=== PATIENT | female | born 1950 | race Caucasian/White ===

== ENCOUNTER 2017-04-08 19:39 | Inpatient (IN) ==
[2017-04-08 20:20] LABS: MANUAL DIFF NEEDED? NO; URINE MICRO REVIEW NEEDED? NO; URINE SOURCE CLEAN CATCH
[2017-04-08 20:26] LABS: BASO% 0.4 % (0.0-0.8); EOS# 0.05 X1000 (0.0-0.7); EOS% 0.4 % (0.0-10.0); HEMATOCRIT 48.9 % (37.0-47.0); HEMOGLOBIN 17.2 g/dL (12.0-16.0); IMM GRAN# 0.03 X1000 (0.0-0.04); IMM GRAN% 0.2 % (0.0-0.5); LYMPH# 1.85 X1000 (1.2-3.4); LYMPH% 13.6 % (20.5-51.1); MCH 32.3 PG (27-31); MCHC 35.2 g/dL (33-37); MCV 91.7 FL (81-99); MONO# 1.03 X1000 (0.11-0.59); MONO% 7.6 % (1.7-9.3); MPV 10.3 FL (7.4-10.4); NEUT% 77.8 % (42.2-75.2); PLT 256 X1000 (130-400); RBC 5.33 XMIL (4.2-5.4)
[2017-04-08 20:48] LABS: BILIRUBIN URINE NEGATIVE (NEGATIVE); BLOOD URINE TRACE (NEGATIVE); COLOR STRAW; GLUCOSE URINE NEGATIVE (NEGATIVE); LEUKOCYTES URINE LARGE (NEGATIVE); NITRITE URINE NEGATIVE (NEGATIVE); PROTEIN URINE NEGATIVE (NEGATIVE); TURBIDITY URINE HAZY (CLEAR); UROBILINOGEN URINE NORMAL (NORMAL)
[2017-04-08 21:09] LABS: AGAP 21; ALKALINE PHOSPHATASE 86 U/L (32-104); AMYLASE 35 U/L (20-200); BUN 3 mg/dL (8-22); CALCIUM 9.4 mg/dL (8.8-10.2); CHLORIDE 94 mmol/L (98-107); COSMO 271; GOT 43 U/L (10-30); GPT 24 U/L (10-36); LIPASE 18 U/L (13-60); POTASSIUM 4.1 mmol/L (3.5-5.1); SODIUM 137 mmol/L (136-145); TCO2 22 mmol/L (25-35); TOTAL BILIRUBIN 0.49 mg/dL (0.20-1.00); TOTAL PROTEIN 7.9 g/dL (6.3-8.3)
[2017-04-08 21:21] LABS: URINE WBC 20-40 /HPF (<10)
[2017-04-08 21:22] LABS: UR EPITHELIAL CELLS <10 /HPF (<10); URINE BACTERIA 4+ /HPF; URINE CULTURE NEEDED? YES
[2017-04-08 21:24] LABS: UR AMPHETAMINES QUAL NONE DETECTED (NONE DETECT); UR BARBITUATES QUAL NONE DETECTED (NONE DETECT); UR BENZODIAZEPIN QUAL NONE DETECTED (NONE DETECT); UR CANNABINOIDS QUAL NONE DETECTED (NONE DETECT); UR COCAINE QUAL NONE DETECTED (NONE DETECT); UR METHADONE QUAL NONE DETECTED (NONE DETECT); UR OPIATES QUAL NONE DETECTED (NONE DETECT); UR OXYCODONE QUAL NONE DETECTED (NONE DETECT); UR PCP QUAL NONE DETECTED (NONE DETECT)
[2017-04-08] MEDS ORDERED: NS 1,000 ML IV ONE (21:45)
[2017-04-08] MEDS ORDERED: REGLAN IV ONE (21:45)
[2017-04-08] MEDS ORDERED: SODIUM CHLORIDE 0.9% INJ ONE (21:47)
[2017-04-08] MEDS ORDERED: PROTONIX IV ONE (21:47)
[2017-04-08] MEDS ORDERED: ROCEPHIN 1 GM/NS 1 GM/50 ML IVPB IV ONE (21:47)
[2017-04-09] MEDS: NS 1,000 ML IV SCH ×5 (00:45→19:45)
[2017-04-09] MEDS ORDERED: G.I. COCKTAIL PO ONE (01:43)
--- NOTE | 2017-04-09 01:46 | PROVIDER DOCUMENTATION ---
This chart was entered by Hakan Rice Scribe, acting as scribe for Brando Crews MD. HPI-Abdominal Pain/GI Problem - General Chief Complaint: Abdominal Pain Stated Complaint: abdominal pain Time Seen by Provider: 04/08/17 21:30 Source: patient Allergies/Adverse Reactions: Patient Allergies Allergy/AdvReac Type Severity Reaction Status Date / Time Iodinated Contrast Media - Allergy RASH Verified 04/08/17 23:21 Oral and Home Medications: Home Medication List Medication Instructions Recorded Confirmed Last Taken Type Furosemide [Lasix] 30 mg PO DAILY #30 tablet 07/05/14 04/08/17 04/05/17 Rx Omeprazole [Prilosec] 20 mg PO DAILY@0700 #20 capsule 07/05/14 04/08/17 Rx Aspirin EC 325 mg PO DAILY 04/08/17 04/08/17 04/05/17 History Baclofen 10 mg PO QHS 04/08/17 04/08/17 04/05/17 History Fluoxetine HCl [Prozac] 60 mg PO DAILY 04/08/17 04/08/17 04/07/17 History Folic Acid 1 mg PO DAILY 04/08/17 04/08/17 04/05/17 History Levothyroxine [Synthroid] 112 microgm PO DAILY 04/08/17 04/08/17 04/07/17 History Metoprolol [Lopressor] 12.5 mg PO DAILY 04/08/17 04/08/17 04/07/17 History Multivitamin [Daily Karthikeyan] 1 each PO DAILY 04/08/17 04/08/17 04/05/17 History Nitroglycerin Sl [Nitroglycerin] 0.4 mg SL PRN PRN 04/08/17 04/08/17 Unknown History PRAVAstatin [Pravachol] 40 mg PO QHS 04/08/17 04/08/17 04/05/17 History Quetiapine Fumarate [Seroquel] 25 mg PO DIRECTED 04/08/17 04/08/17 04/07/17 History Thiamine HCl 100 mg PO DAILY 04/08/17 04/08/17 04/05/17 History Trazodone [Desyrel] 100 mg PO QHS 04/08/17 04/08/17 04/05/17 History - History of Present Illness-ABD Nature of Presenting Problems: Pt is a 66 yowf who presents to ER with CC of N/V/D/abdominal pain x3 days. Pt reports hx of alcoholism (12 beers/day) and states that within the past 3 days, she has developed left sided abdominal pain, sore throat, leg cramps, diarrhea/ loose stools, and N/V. Pt states that she has consumed 6 beers today, hoping it would help alleviate her pain. Abdominal Pain Onset Location: reports: generalized abdomen (left sided) Pain Radiation: reports: no radiation Quality of Pain: reports: aching, sharp Severity in ED: reports: moderate Onset/Duration: reports: 3 days ago Timing: reports: still present Associated Symptoms: reports: diaphoresis, diarrhea, EENT symptoms (sore throat) , fever/chills, nausea, shortness of breath (chronic from COPD), vomiting. denies: anxiety, arm pain, back/neck pain, chest pain, dizziness, fatigue, headaches, heartburn, joint pain, muscle aches, sinus congestion/drainage, syncope, weakness, trouble walking Last BM: unsure Dark Stools Present?: reports: none noticed Rectal Bleeding: reports: none Rectal Pain: reports: none Review of Systems - Adult - REVIEW OF SYSTEMS - ADULT Constitutional: reports: chills, fatique. denies: fever, night sweats, weight gain, weight loss Eyes: reports: no symptoms reported Ears, Nose, Mouth & Throat: reports: no symptoms reported Cardiovascular: reports: no symptoms reported Respiratory: reports: cough, shortness of breath. denies: dyspnea on exertion, excessive sputum production, hemoptysis, pleurisy, wheezing Gastrointestinal: reports: abdominal pain, diarrhea, nausea, vomiting. denies: hematemesis, constipation, difficulty swallowing, frequent heartburn, poor appetite, rectal bleeding Genitourinary: reports: no symptoms reported Musculoskeletal: reports: no symptoms reported Integumentary: reports: no symptoms reported Neurological: reports: no symptoms reported Psychiatric: reports: no symptoms reported Endocrine: reports: no symptoms reported Hematologic/Lymphatic: reports: no symptoms reported Allergic/Immunologic: reports: no symptoms reported All Other Systems: Reviewed and Negative Past History - Adult - PAST MEDICAL HISTORY-ADULT Review of Records: reports: Nursing Assessment Review, Medications Reviewed Cardiovascular: reports: CHF, HTN, hyperlipidemia, MT, PVD Respiratory: reports: COPD Endocrine/Immune: reports: thyroid disorder - PRIOR SURGERIES/PROCEDURES Surgical/Procedure History: reports: appendectomy, CABG - IMMUNIZATION STATUS Childhood Immunizations: See Nurse Assessment Flu Vaccine: See Nurse Assessment - FAMILY HISTORY Family History: reviewed, not pertinent Physical Exam-General - PHYSICAL EXAM-ADULT Initial Vital Signs Reviewed: Yes - CONSTITUTIONAL General Appearance: appears well, alert, moderate distress - EYES Eyes: PERRL/EOMI, pink conjunctivae - HEAD, EARS, NOSE, MOUTH & THROAT HENMT: moist mucous membranes, pharynx normal - RESPIRATORY Respiratory: chest non-tender, no pleuratic chest pain, no respiratory distress , no accessory muscle use, wheezing (slight inspiratory/expiratory, all sequeira) . negative: lungs clear, normal breath sounds, respiratory distress, decreased breath sounds, accessory muscle use - CARDIOVASCULAR Cardiovascular: normal peripheral pulses, regular rate, rhythm. negative: bradycardia, tachycardia, irregularly irregular - GASTROINTESTINAL (ABDOMEN) Abdominal Exam: normal bowel sounds, soft, no organomegaly, no pulsatile mass, tenderness (epigastric). negative: non tender - PSYCHIATRIC Psych/Mental Status: normal mood/affect, normal thought content, normal thought process, oriented x 3, depressed affect Progress - PLAN OF CARE/RESULTS Progress/Plan/Lab Results: Vital Signs - 8 hr 04/08/17 20:01 Temperature 97.5 F L Pulse Rate 116 H Respiratory Rate 19 Blood Pressure 127/91 O2 Sat by Pulse Oximetry 97 Laboratory Results - last 24 hr 04/08/17 04/08/17 04/08/17 20:07 20:07 20:07 WBC 13.58 H RBC 5.33 Hgb 17.2 H Hct 48.9 H MCV 91.7 MCH 32.3 H MCHC 35.2 RDW Std Deviation 13.0 Plt Count 256 MPV 10.3 Immature Gran % (Auto) 0.2 Neut % (Auto) 77.8 H Lymph % (Auto) 13.6 L [place] % (Auto) 7.6 Eos % (Auto) 0.4 Baso % (Auto) 0.4 Immature Gran # (Auto) 0.03 Neut # (Auto) 10.56 H Lymph # (Auto) 1.85 [place] # (Auto) 1.03 H Eos # (Auto) 0.05 Baso # (Auto) 0.06 Sodium 137 Potassium 4.1 Chloride 94 L Carbon Dioxide 22 L Anion Gap 21 BUN 3 L Creatinine 0.6 Estimated GFR/1.73 m2 > 60 BUN/Creatinine Ratio 5 Glucose 116 H Calculated Osmolality 271 Calcium 9.4 Total Bilirubin 0.49 AST 43 H ALT 24 Alkaline Phosphatase 86 Total Protein 7.9 Albumin 4.0 Globulin 3.9 Albumin/Globulin Ratio 1.0 Amylase 35 Lipase 18 Urine Source Urine Color Urine Turbidity Urine pH Ur Specific [place] Urine Protein Ur Glucose (Stick) Ur Ketones (Stick) Urine Blood Urine Nitrite Urine Bilirubin Urobilinogen Dipstick Urine Leukocytes Urine WBC (Auto) Urine RBC (Auto) U Epithel Cells (Auto) Urine Bacteria (Auto) Urine Opiates Screen Ur Oxycodone Screen Ur Methadone, Qual Ur Barbiturates Screen Ur Phencyclidine Scrn Ur Amphetamines Screen U Benzodiazepines Scrn Urine Cocaine Screen U Cannabinoids Screen Plasma/Serum Ethyl Alc 90 H 04/08/17 04/08/17 20:07 20:20 WBC RBC Hgb Hct MCV MCH MCHC RDW Std Deviation Plt Count MPV Immature Gran % (Auto) Neut % (Auto) Lymph % (Auto) [place] % (Auto) Eos % (Auto) Baso % (Auto) Immature Gran # (Auto) Neut # (Auto) Lymph # (Auto) [place] # (Auto) Eos # (Auto) Baso # (Auto) Sodium Potassium Chloride Carbon Dioxide Anion Gap BUN Creatinine Estimated GFR/1.73 m2 BUN/Creatinine Ratio Glucose Calculated Osmolality Calcium Total Bilirubin AST ALT Alkaline Phosphatase Total Protein Albumin Globulin Albumin/Globulin Ratio Amylase Lipase Urine Source CLEAN CATCH Urine Color STRAW Urine Turbidity HAZY Urine pH 6.0 Ur Specific [place] 1.000 Urine Protein NEGATIVE Ur Glucose (Stick) NEGATIVE Ur Ketones (Stick) NEGATIVE Urine Blood TRACE A Urine Nitrite NEGATIVE Urine Bilirubin NEGATIVE Urobilinogen Dipstick NORMAL Urine Leukocytes LARGE A Urine WBC (Auto) 20-40 A Urine RBC (Auto) 10-20 A U Epithel Cells (Auto) <10 Urine Bacteria (Auto) 4+ Urine Opiates Screen NONE DETECTED Ur Oxycodone Screen NONE DETECTED Ur Methadone, Qual NONE DETECTED Ur Barbiturates Screen NONE DETECTED Ur Phencyclidine Scrn NONE DETECTED Ur Amphetamines Screen NONE DETECTED U Benzodiazepines Scrn NONE DETECTED Urine Cocaine Screen NONE DETECTED U Cannabinoids Screen NONE DETECTED Plasma/Serum Ethyl Alc Orders Category Date Time Status Saline Loc DIRECTED Care 04/08/17 20:09 Active NPO Diet 04/08/17 20:09 Active ABDOMEN/PELVIS W/O CONTRAST [CT] Stat Exams 04/08/17 21:[address] ABD/PELVIS W/ IV CONT ONLY [CT] Stat Exams 04/08/17 21:46 Ordered ALCOHOL BLOOD Stat Lab 04/08/17 20:07 Completed AMYLASE [CHEM] Stat Lab 04/08/17 20:07 Completed CBC WITH ELECTRONIC DIFF [HEME] Stat Lab 04/08/17 20:07 Completed COMPREHENSIVE METABOLIC PANEL [CHEM] Stat Lab 04/08/17 20:07 Completed LIPASE [CHEM] Stat Lab 04/08/17 20:07 Completed UDS [URINE DRUG SCREEN] Stat Lab 04/08/17 20:20 Completed URINALYSIS W/POSS RFLX CULT-1 [URINALYSIS] Stat Lab 04/08/17 20:07 Completed URINE CULTURE [RM] Routine Lab 04/08/17 21:22 Received 0.9% Sodium Chloride Inj [Ns] 1,000 ml Med 04/08/17 21:46 Ordered IV 200 mls/hr 0.9% Sodium Chloride Inj [Ns] 1,000 ml Med 04/08/17 21:45 Active IV 999 mls/hr CefTRIAXONE 1 GM/NS [Rocephin 1 gm/Ns] Med 04/08/17 21:47 Active 1 gm in 50 ml IV NOW Metoclopramide [Reglan] Med 04/08/17 21:45 Discontinued 10 mg IV NOW ONE Pantoprazole [Protonix] Med 04/08/17 21:47 Discontinued 40 mg IV NOW ONE Sodium Chloride 0.9% Med 04/08/17 21:47 Discontinued 10 ml INJ NOW ONE Result Diagrams: 04/08/17 20:07 04/08/17 20:07 - CT/MRI 1 CT Study: Abdomen, Pelvis Impression: See EMR Report (No renal stones. No hydronephrosis. Non specific inflammation adjacent to the posterior left kidney. Prominent atherosclerosis. No bowel obstruction. No inflammation about the cecum. No abscess. No free air. Diverticulosis. No calcified gallstones or adjacent inflammation. - Dr. Reese ( Radiologist)) CT Results: See report - CONSULTS/PCP/HOSPITALIST Notification #1 *Consult/PCP/Hospitalist*: Dr. Petit (Hospitalist) Time Discussed: 00:55 Consult Disposition: Admit Departure - Departure Date of Disposition Decision: 04/09/17 Time of Disposition Decision: 01:42 DIAGNOSIS: Abdominal pain Qualifiers: Abdominal location: left lower quadrant Qualified Code(s): R10.32 - Left lower quadrant pain Vomiting Qualifiers: Vomiting type: unspecified Vomiting Intractability: non-intractable Nausea presence: with nausea Qualified Code(s): R11.2 - Nausea with vomiting, unspecified Disposition: ADMITTED INPATIENT 09 Certified Medical Emergency: Emergent Condition: Good Referrals and Follow-Ups: Jonathan Bains [Primary Care Provider] - - Critical Care Note This patient required my direct & personal management of CC.: Yes This chart was documented by the indicated scribe, (Hakan Rice Scribe) and accurately reflects the services I performed and decisions made by me, Brando Crews MD, as attested by the provider's signature.
[2017-04-09] MEDS ORDERED: NITROGLYCERIN SL PRN (03:21)
[2017-04-09] MEDS ORDERED: ATIVAN IV ONE (03:21)
[2017-04-09] MEDS: DUONEB (A & A) INH SCH ×4 (03:35→19:53)
[2017-04-09] MEDS: LIBRIUM PO SCH ×3 (03:49→23:03)
--- NOTE | 2017-04-09 05:01 | HISTORY AND PHYSICAL ---
REASON FOR ADMISSION: A 2-day history of nausea, loose stools and dry heaves and a 2-day history of worsening shortness of breath and orthopnea. HISTORY OF PRESENT ILLNESS: Ms. Alfreda Sauer is a 66-year-old lady with past medical history of coronary artery disease, hypertension, COPD, hypothyroidism, hyperlipidemia, who says that 3 days ago, she started noticing that her chronic dyspnea had taken a turn for the worst. She had an exercise tolerance that had significantly decreased. She says she has barely been able to go beyond 25 feet. No cough, fever or chills. No worsening neck swelling. She has noticed some orthopnea over the last 24 hours. There is no chest pain or anginal-type symptoms. No palpitations or lightheadedness. The following day, she started having some nausea and dry heaves with a few episodes of nonbloody, non-mucoid loose stools. She complains of now over the last 8 hours, she has developed epigastric pain radiating to the back with no specific aggravating or relieving factors. He also developed suprapubic discomfort but no dysuria or genitourinary complaints. No hematuria and no neurological complaints. No rash or arthralgia. REVIEW OF SYSTEMS: Twelve review of systems is negative. Positive findings per HPI. ALLERGIES: Iodinated contrast medium. FAMILY HISTORY: Notable for diabetes, heart disease, and breast cancer. PAST SURGICAL HISTORY: Appendectomy, CABG, and breast biopsies. SOCIAL HISTORY: Drinks 12 beers a day and smokes 1 pack a day. Lives alone. No alcohol. No illicit drug use. LAB WORK: White count 13,000, hemoglobin 17 and hematocrit 49, platelets 256,000, glucose 116, amylase and lipase normal. Urine drug screen is normal with alcohol level of 90. Urinalysis large leukocytes, 4+ bacteria. IMAGING: CT abdomen with the prelim report shows no acute intra-abdominal process. PHYSICAL EXAMINATION: GENERAL: Overweight middle aged, woman with blood pressure of 127/91, heart rate 116, temperature is 97.5 degrees, respirations 19. She is 97% on room air. HEENT: Head is normocephalic, atraumatic. Eyes JEFF, EOMI, anicteric and not pale. ENT and oropharyngeal exam is grossly normal. NECK: Supple. No JVD or carotid bruit. No thyromegaly. CHEST: Decreased air entry to both lung sequeira with scattered wheezes. No crepitations. CARDIOVASCULAR: First and second heart sounds heard. No gallops, murmurs, rubs. Rhythm is regular. ABDOMEN: Protuberant, soft with tenderness that is confined to the suprapubic area and epigastric area but neither of these have demonstrable rebound or guarding. Bowel sounds are hypoactive. RECTAL: Exam is deferred at this time. No mass or organomegaly. EXTREMITIES: Good pulses distally in the lower extremities, and they are all symmetrical with good volume. No edema, clubbing or peripheral cyanosis. NEUROLOGICAL: The patient has fine tremors in outstretched hands. PSYCH: She is alert and oriented to person, place, and time with a flat affect and very anxious. SKIN: Intact without breakdown lesions or erythema. MUSCULAR: Exam is grossly normal. ASSESSMENT: 1. Chronic obstructive pulmonary disease exacerbation. 2. Alcohol withdrawal. 3. Urinary tract infection 4. Coronary disease 5. Hypertension 6. Hyperlipidemia. PLAN: At this time, start patient on breathing treatments and moderate doses of steroids. Smoking cessation was reiterated. The patient says she wants to quit. We will start patient on low-dose Librium and p.r.n. Ativan and continue with multivitamin supplementation. Again, the patient says she was to quit alcohol abuse because she thinks she has affected her overall health. We will start patient on empiric antibiotics pending the urine culture, i.e., Rocephin. We will also start patient on PPIs in case patient has developed gastritis from dry heaving over the last 2-3 days and see how she responds to this. cc: Hayley Petit MD
[2017-04-09] MEDS: SYNTHROID PO SCH (06:23)
[2017-04-09] MEDS: LOVENOX SUBQ SCH (06:24)
[2017-04-09] MEDS ORDERED: PRILOSEC PO SCH (07:00)
--- NOTE | 2017-04-09 09:52 | Diag Imaging Result Doc PS360 ---
ABDOMEN/PELVIS W/O CONTRAST - 04/08/2017 INDICATION: abd pain TECHNIQUE: A CT dose reduction protocol was used. COMPARISON: None FINDINGS: No radiodense renal stones. No hydronephrosis or hydroureter. There is moderate vascular disease with calcification of the abdominal aorta extending into the iliac artery systems. No bowel obstruction or inflammation. Urinary bladder, uterus, and rectum are normal. There is nonspecific perinephric edema particularly on the left side. There are moderate degenerative changes of the spine. No acute or suspicious bony lesion. IMPRESSION: Nonspecific left perinephric edema. Correlate for possible infection. Electronically signed by Gurpreet Austin 04/09/2017 9:49 AM
[2017-04-09] MEDS: FOLIC ACID PO SCH (10:14)
[2017-04-09] MEDS: NICODERM PATCH TD SCH (10:14)
[2017-04-09] MEDS: VITAMIN B-1 PO SCH (10:15)
[2017-04-09] MEDS: PROZAC PO SCH (10:15)
[2017-04-09] MEDS: PREDNISONE PO SCH (10:17)
[2017-04-09] MEDS: LOPRESSOR PO SCH (10:17)
[2017-04-09] MEDS: ASPIRIN EC PO SCH (10:17)
[2017-04-09] MEDS: THERA M PLUS PO SCH (10:18)
--- NOTE | 2017-04-09 21:25 | CONSULTATION ---
DATE OF CONSULTATION: 04/09/2017 PRIMARY CARE DOCTOR: Jonathan Randle at [facility] in [place]. REASON FOR CONSULTATION: Nausea, loose stools, dry heaving and shortness of breath, orthopnea and alcoholism. HISTORY OF PRESENT ILLNESS: Ms. Sauer is 66 -year-old female with a 3-day history of worsening shortness of breath and has a known history COPD and chronic smoker. The patient smokes 1 pack a day for many decades and she drinks 12 beers a day for many decades. She has been trying to quit but has failed. She started having abdominal pain in the epigastric region along with nausea, vomiting and diarrhea. She denied noticing any blood in the vomitus or blood in the stools and black stools. She also complained of some suprapubic discomfort but no dysuria or blood in the urine. She presented the hospital. She is currently feeling very hungry and wants to eat orally. She has been NPO since early this morning. PAST MEDICAL HISTORY: 1. Coronary disease. 2. Hypertension. 3. COPD. 4. Hypothyroidism. 5. Hyperlipidemia. 6. Chronic alcoholism. 7. Chronic smoker. ALLERGIES: To iodinated contrast medium. PAST SURGICAL HISTORY: 1. Appendectomy. 2. CABG. 3. Breast biopsy. FAMILY HISTORY: Notable for diabetes, heart disease and breast cancer. SOCIAL HISTORY: Drinks 12 beers a day for many decades, she smokes 1 pack a day for many decades, she lives alone. No history illicit drug abuse. MEDICATIONS AT HOME: Include. 1. Lasix 30 mg p.o. daily. 2. Prilosec 20 mg daily. 3. Levothyroxine 112 mcg daily. 4. Trazodone 100 mg p.o. daily. 5. Thiamine 100 mg once daily. 6. Nitroglycerin 0.4 mg sublingual as needed. 7. Multivitamin once daily. 8. Aspirin 325 mg daily. 9. Folic acid 1 mg once daily. 10. Fluoxetine 60 mg p.o. daily. 11. Baclofen 10 mg p.o. at bedtime. 12. Seroquel 25 mg p.o. as directed. 13. Pravachol 40 mg at bedtime. 14. Metoprolol 12.5 mg p.o. daily. MEDICATIONS IN THE HOSPITAL: Were reviewed in the chart. REVIEW OF SYSTEMS: Denies any current fevers, rigors, chills, chest pain, shortness of breath at this time. Denies any vomiting or passing blood, denies, any new genitourinary complaints, denies any neurologic complaints although she does feel anxious and she feels she is withdrawing from alcohol but she is on medication likely being for that. She is hungry she wants to eat. PHYSICAL EXAM: Vital signs: 98.1, pulse rate 110, respiratory 18, blood pressure 130/96, saturating 94% room air, body weight of 174 pounds 6 ounces, BMI of 25 kg m squared. General: Moderate nourished lying in bed in no acute distress. HEENT: No pallor, no icterus. Pupils equal, react to light. Neck: Supple. Chest: Decreased. Cardiac: Regular rhythm, tachycardic at times and chest is decreased breath sounds at the bases; CVS: tachycardic. Abdomen: Soft, mild discomfort appears to be no rebound or guarding. Bowel sounds are present. Extremities: No cyanosis, clubbing, edema. Neuro: She is alert, awake, oriented x3. LABS: Hemoglobin and hematocrit is 17.2 and 48.9, white count of 13.58, platelet count of 256,000, MCV of 91.7. Sodium 137, potassium 4.1, chloride 94, bicarb 22, anion gap of 21, BUN of 3, creatinine 0.6, glucose of 116, calcium 9.4, magnesium 1.9, total bilirubin is 0.49, AST 43, ALT 24, alkaline phosphatase 86, total protein 7.9, albumin of 4, amylase of 37 , lipase of 18. Urinalysis positive leukocytes, 20-40 white cells and RBCs and blood alcohol was 90. She had a abdominal pelvic CT scan done last night which showed nonspecific left perinephric edema correlate for possible infection, moderate vascular disease with calcification abdominal aorta extending into the iliac artery systems, no bowel obstruction, inflammation, degenerative changes the spine. IMPRESSION AND PLAN: 1. Abdominal pain epigastric, nausea, vomiting, diarrhea, suspect gastritis secondary to alcohol and smoking versus viral gastroenteritis. We need to also rule out possibility peptic ulcer disease. She has UTI and it can also contribute to her symptoms and urine culture is showing GNR>100k cfu/ml. she has been started on ceftriaxone per the primary care team. 2. Dehydration. 3. Alcoholism. 4. Alcohol withdrawal, watch for delirium tremens. 5. Arthrosclerotic vascular disease on full-dose aspirin. 6. History coronary disease status post coronary artery bypass graft on full dose aspirin which can also contribute to stomach ulcer. RECOMMENDATIONS: 1. Will have patient continue get IV fluids and will switch her to IV PPIs, watch her blood counts, will watch her closely for delirium tremens. She is already on Librium per the primary team. Will continue on multivitamin, thiamine and folic acid as per the primary care team. Will check stool studies. Continue treatment of UTI. 2. If patient continues to have symptoms we may perform EGD on Tuesday. Further recommendations pending. cc: Hayley ePtit MD [facility] CENTERAsya
[2017-04-09] MEDS: ROCEPHIN 1 GM/NS 1 GM/50 ML IVPB IV SCH (23:02)
[2017-04-09] MEDS: DESYREL PO SCH (23:03)
[2017-04-09] MEDS: PRAVACHOL PO SCH (23:03)
[2017-04-10] MEDS: ZOFRAN IV PRN ×2 (02:03→07:52)
[2017-04-10] MEDS: DUONEB (A & A) INH SCH ×4 (03:48→19:49)
[2017-04-10] MEDS: NS 1,000 ML IV SCH ×3 (05:20→17:31)
[2017-04-10 06:16] LABS: MANUAL DIFF NEEDED? NO
[2017-04-10 06:26] LABS: BASO% 0.2 % (0.0-0.8); EOS# 0.04 X1000 (0.0-0.7); EOS% 0.3 % (0.0-10.0); HEMATOCRIT 42.9 % (37.0-47.0); HEMOGLOBIN 14.7 g/dL (12.0-16.0); IMM GRAN# 0.03 X1000 (0.0-0.04); IMM GRAN% 0.2 % (0.0-0.5); LYMPH# 1.46 X1000 (1.2-3.4); LYMPH% 11.5 % (20.5-51.1); MCH 32.5 PG (27-31); MCHC 34.3 g/dL (33-37); MCV 94.9 FL (81-99); MONO# 1.03 X1000 (0.11-0.59); MONO% 8.1 % (1.7-9.3); MPV 10.8 FL (7.4-10.4); NEUT% 79.7 % (42.2-75.2); PLT 209 X1000 (130-400); RBC 4.52 XMIL (4.2-5.4)
[2017-04-10] MEDS: LOVENOX SUBQ SCH (06:48)
[2017-04-10] MEDS: SYNTHROID PO SCH (06:48)
[2017-04-10] MEDS: PRILOSEC PO SCH (06:48)
[2017-04-10 06:53] LABS: AGAP 15; ALBUMIN 3.4 g/dL (3.5-5.0); ALKALINE PHOSPHATASE 74 U/L (32-104); BUN 3 mg/dL (8-22); CALCIUM 8.1 mg/dL (8.8-10.2); CHLORIDE 99 mmol/L (98-107); COSMO 272; GOT 29 U/L (10-30); GPT 17 U/L (10-36); POTASSIUM 3.5 mmol/L (3.5-5.1); SODIUM 137 mmol/L (136-145); TCO2 23 mmol/L (25-35); TOTAL BILIRUBIN 0.56 mg/dL (0.20-1.00); TOTAL PROTEIN 6.4 g/dL (6.3-8.3)
[2017-04-10] MEDS: PREDNISONE PO SCH (08:17)
[2017-04-10] MEDS: FOLIC ACID PO SCH (08:17)
[2017-04-10] MEDS: TYLENOL PO PRN ×2 (08:17→17:31)
[2017-04-10] MEDS: PROZAC PO SCH (08:17)
[2017-04-10] MEDS: ASPIRIN EC PO SCH (08:17)
[2017-04-10] MEDS: THERA M PLUS PO SCH (08:18)
[2017-04-10] MEDS: NICODERM PATCH TD SCH (08:18)
[2017-04-10] MEDS: LOPRESSOR PO SCH (08:18)
[2017-04-10] MEDS: LIBRIUM PO SCH ×2 (08:18→17:31)
[2017-04-10] MEDS: VITAMIN B-1 PO SCH (08:18)
[2017-04-10] MEDS ORDERED: LIBRIUM PO SCH (16:45)
--- NOTE | 2017-04-10 21:42 | PROGRESS NOTE ---
DATE: 04/10/2017 SUBJECTIVE: The patient has no focal complaints. She does seem a little anxious, tremulous but not much more than yesterday, I think she has kind of been that way. Her breathing has improved. OBJECTIVE: Vital signs: Her blood pressure is 138/62, heart rate 94, respiratory rate 20, temperature 98.4 degrees, 97% on room air. Cardiovascular: Regular rate and rhythm. Pulmonary: Bilateral breath sounds. Clear to auscultation. GI: Soft, nontender, nondistended. Bowel sounds are positive. LABORATORY DATA: White count of 12, hemoglobin and hematocrit 14 and 42, platelets 209,000. CMP was normal. PROBLEM LIST: 1. Chronic obstructive pulmonary disease exacerbation. She is on prednisone and breathing treatments and Rocephin. She seems to be doing okay from that standpoint. 2. Alcohol withdrawal. She is on a Librium not taper at this time. I am going to kind of bump it up little bit because she seems to be a little bit more agitated and she is requesting a nebulizer at home which I think is reasonable. 3. Nausea, vomiting, diarrhea. GI has been consulted. She had some protracted diarrhea so stools have been sent off. Dr. Garcia has seen the patient and is recommending Dr. Hobbs evaluate her possibly endoscopically however patient is refusing endoscopy. Apparently a family member had issues, complications with an EGD so she is reluctant to do that. I just went ahead and ordered a upper GI series. She seems to be amenable to that. 4. Disposition. Clinically, she is stabilizing. I think she can probably go home tomorrow if everything improves. cc: Juan Ramon Villeda MD
[2017-04-10] MEDS: PRAVACHOL PO SCH (21:55)
[2017-04-10] MEDS: DESYREL PO SCH (21:55)
[2017-04-10] MEDS: ROCEPHIN 1 GM/NS 1 GM/50 ML IVPB IV SCH (21:55)
--- NOTE | 2017-04-10 23:12 | PROGRESS NOTE ---
DATE: 04/10/2017 SUBJECTIVE: Patient resting in bed. She complains of epigastric pain. Her nausea is better, her pain intensity is gone down to 7/10. She does complain some dry heaving. Denies any vomiting blood or passing blood in the stools. She feels jittery because of alcohol withdrawal, has been getting Librium. She denies any fevers, rigors, chills. OBJECTIVE: Vital signs: Temperature 98.4 degrees, pulse of 94, respiratory 20 , blood pressure 130/62, saturating 92% room air. General Appearance: Moderately nourished sitting in bed in no acute distress. HEENT: No pallor. No icterus. Neck: Supple. Abdomen: Soft , nontender, mild discomfort in periumbilical region. Epigastrium no rebound or guarding. Bowel sounds. Extremities: No cyanosis, clubbing, and edema. Neuro: She is alert, awake, oriented. LABS: Her hemoglobin and hematocrit is 14.7, 42.9, white count of 12.73, platelet count of 209,000, MCV of 94.9. Sodium 137, potassium 3.5, chloride 99, bicarb 20, anion gap 15, BUN of 3, creatinine 0.6, glucose of 126, calcium is 8.1, magnesium 1.9, total bilirubin 0.56, AST 29, ALT 17, total protein 6.4, albumin of 3.4. UA is positive for white cells and urine culture is showing E. coli which is jerez sensitive. IMPRESSION AND PLAN: 1. Abdominal pain epigastrium along with nausea, vomiting, dry heaving which is improving slowly with proton pump inhibitors, I suspect it to be alcoholic gastritis versus viral gastroenteritis. 2. Urinary tract infection. 3. Dehydration. 4. Alcoholism, she is trying to quit. 5. Mild alcohol withdrawal, she is currently feeling jittery and is continuing on Librium. Atherosclerotic vascular disease on full dose aspirin. 1. Coronary disease status post coronary bypass on full aspirin. RECOMMENDATIONS: 1. Patient will continue on current treatment with IV PPIs, will follow her labs, she is already on Librium and Ativan per the primary team. She will continue on multivitamin, thiamine, folic acid. 2. Dr. Hobbs will return tomorrow to resume care. Patient at this moment does not want EGD as she is feeling better. 3. Further recommendations following the pending the hospital course. I reiterated the need to completely quit alcohol and the patient acknowledges and agreed to comply with that. cc: Didi Hobbs MD MTDD
[2017-04-11] MEDS: DUONEB (A & A) INH SCH ×3 (03:43→15:01)
[2017-04-11] MEDS: SYNTHROID PO SCH (06:16)
[2017-04-11] MEDS: LOVENOX SUBQ SCH (06:16)
[2017-04-11] MEDS: PRILOSEC PO SCH (06:16)
[2017-04-11] MEDS: NS 1,000 ML IV SCH (06:17)
[2017-04-11 06:22] LABS: HEMATOCRIT 37.8 % (37.0-47.0); MCH 32.8 PG (27-31); MCHC 34.4 g/dL (33-37); MCV 95.5 FL (81-99); RBC 3.96 XMIL (4.2-5.4)
[2017-04-11 06:40] LABS: AGAP 10; BUN 4 mg/dL (8-22); CALCIUM 8.1 mg/dL (8.8-10.2); CHLORIDE 106 mmol/L (98-107); COSMO 277; POTASSIUM 3.3 mmol/L (3.5-5.1); SODIUM 140 mmol/L (136-145); TCO2 24 mmol/L (25-35)
[2017-04-11] MEDS: ZOFRAN IV PRN (07:01)
[2017-04-11] MEDS: NICODERM PATCH TD SCH (09:41)
[2017-04-11] MEDS: VITAMIN B-1 PO SCH (09:41)
[2017-04-11] MEDS: THERA M PLUS PO SCH (09:41)
[2017-04-11] MEDS: ASPIRIN EC PO SCH (09:41)
[2017-04-11] MEDS: LIBRIUM PO SCH ×3 (09:41→16:40)
[2017-04-11] MEDS: PROZAC PO SCH (09:42)
[2017-04-11] MEDS: FOLIC ACID PO SCH (09:42)
[2017-04-11] MEDS: LOPRESSOR PO SCH (09:42)
[2017-04-11] MEDS: PREDNISONE PO SCH (09:42)
--- NOTE | 2017-04-11 10:00 | Diag Imaging Result Doc PS360 ---
EXAM: GI SERIES WITH BA SWALLOW INDICATION: nausea/emesis TECHNIQUE: Oral barium contrast was administered administration of gas crystals. Fluoroscopic spot images were obtained in the usual fashion post administration. COMPARISON: None. FINDINGS: Upon swallowing the liquid barium, there were a few mild tertiary contractions involving the distal esophagus suggesting mild dysmotility. Otherwise, the esophagus is normal in course, caliber, contour, and mucosal relief. Barium passed readily through the gastroesophageal junction and into the stomach. There were normal appearing gastric rugal folding patterns. No definite gastric filling defect or ulceration can be identified. The duodenal sweep is grossly unremarkable. Barium passed readily through the pylorus and into the duodenum. IMPRESSION: A few mild tertiary contractions involving the esophagus upon swallowing suggesting mild dysmotility. Electronically signed by Luis Richey 04/11/2017 9:57 AM
[2017-04-11 13:37] VITALS: BP 113/78
--- NOTE | 2017-04-12 08:42 | DISCHARGE SUMMARY ---
ADMISSION DATE: 04/09/2017 DISCHARGE DATE: 04/11/2017 ADMISSION DIAGNOSES: 1. Chronic obstructive pulmonary disease exacerbation. 2. Alcohol withdrawal. 3. Urinary tract infection. 4. Coronary artery disease. 5. Hypertension. HYPERLIPIDEMIA. DISCHARGES: 1. Nausea. 2. Loose stools. 3. Dry heaving. Dr. Garcia was consulted for abdominal pain and epigastric pain also with suspected gastritis secondary to alcohol and smoking versus viral gastroenteritis. 4. Chronic obstructive pulmonary disease exacerbation. 5. Alcohol withdrawal. 6. Dehydration. 7. Urinary tract infection. 8. Coronary artery disease. 9. Hypertension. 10. Hyperlipidemia. CONSULTATIONS: Dr. Garcia, Gastroenterology. SURGERIES OR PROCEDURES: On 04/11/2017 this morning, had an upper GI barium swallow series which showed a few mild tertiary contractions involving the esophagus upon swallowing suggesting mild dysmotility. HOSPITAL COURSE: Ms. Alfreda Sauer is a 66-year-old female with a medical history of coronary artery disease, hypertension, COPD, hypothyroidism, hyperlipidemia who states that approximately 3 days ago she started having a chronic cough with some dyspnea that continued to get worse, and over the last 24 hours had orthopnea. Denied chest pain, palpitations, or lightheadedness. She also noticed over the last 24 hours prior to admission that she started having some nausea with dry heaves, emesis that was nonbloody and stools that was nonbloody, and 8 hours prior to admission had epigastric pain that radiated to the back, along with suprapubic discomfort but no dysuria or other complaints. Denied blood in the urine. Workup revealed elevated white count along with bacteria in the urine. She did have an alcohol level of 90 and was started on Rocephin for that. Given the abdominal pain complaints, Gastroenterology was consulted but this is likely secondary to alcohol withdrawal. She did have an upper GI series that showed mild dysmotility. She was not anemic on admission nor did she become anemic throughout her stay. For her COPD exacerbation, she was started on prednisone. Also the Rocephin helped cover that and respiratory treatments. For her alcohol withdrawal she was started on Librium. For her nausea, vomiting and diarrhea, stools were sent but none reported. Dr. Garcia recommended that Dr. Hobbs do endoscopy but the patient is refusing endoscopy secondary to having a family member that had complications post EGD so she is reluctant to have it done. The nausea, vomiting and dry heaving had improved with proton pump inhibitors. It was suspected that was alcoholic gastritis versus viral gastroenteritis. She will go home with antibiotic therapy for her urinary tract infection, and possibly will go home with some Librium secondary to alcohol withdrawal. It was highly recommended that she quit drinking alcohol. DISCHARGE VITAL SIGNS: Temperature 98 degrees, heart rate 88, respiratory rate 18, blood pressure 141/85, O2 saturation 96% on room air. DISCHARGE MEDICATIONS: As per Dr. Villeda. Will need to go home with p.o. antibiotics for her urinary tract infection and will likely go home with home nebulizers as she is requesting. DISCHARGE DIET: Regular. DISCHARGE ACTIVITY: As tolerated. DISPOSITION: Home. DISCHARGE INSTRUCTIONS: If symptoms return seek medical advice and to follow up with her primary care provider, Jonathan Bains, and to follow with Dr. Hobbs as outpatient. Dictated by BRUNILDA Luong for Juan Ramon Villeda MD cc: BRUNILDA Luong MD [facility] Jeanette Keith, MD pt examined, agree with above APENOT MTDD
== END 2017-04-11 18:56 | disposition home or self-care (01) ==
LOC: ED 19:39 → SUATTDRO 04-09 01:38 → 4N 04-09 01:38
PROVIDERS: ATTEND Internal Medicine